=== PATIENT | female | born 1950 | race American Indian/Alaskan Native ===

== ENCOUNTER 2018-12-24 18:27 | Emergency (ER) | payer MEDICAID, MEDICARE ==
--- NOTE | 2018-12-24 18:46 | EDM.PDOC ---
ED HPI GENERAL MEDICAL PROBLEM - General Chief Complaint: Lower Extremity Injury/Pain Stated Complaint: FELL SPRAINED ANKLE Time Seen by Provider: 12/24/18 18:41 - History of Present Illness INITIAL COMMENTS - FREE TEXT/NARRATIVE: HISTORY AND PHYSICAL: History of present illness: Patient is a 68-year-old female sensory concern of right lower extremity injury patient she fell sustaining abrasion to her right leg and ankle injury she denies any head or neck pain or trauma or other concern Review of systems: As per history of present illness and below otherwise all systems reviewed and negative. Past medical history: As per history of present illness and as reviewed below otherwise noncontributory. Surgical history: As per history of present illness and as reviewed below otherwise noncontributory. Social history: No reported history of drug or alcohol abuse. Family history: As per history of present illness and as reviewed below otherwise noncontributory. Physical exam: HEENT: Atraumatic, normocephalic, pupils reactive, negative for conjunctival pallor or scleral icterus, mucous membranes moist, throat clear, neck supple, nontender, trachea midline. Lungs: Clear to auscultation, breath sounds equal bilaterally, chest nontender. Heart: S1S2, regular, negative for clicks, rubs, or JVD. Abdomen: Soft, nondistended, nontender. Negative for masses or hepatosplenomegaly. Negative for costovertebral tenderness. Pelvis: Stable nontender. Genitourinary: Deferred. Rectal: Deferred. Extremities: Patient had a minor abrasion noted to her right tib-fib right ankle is no gross deformity or some mild tenderness in the region of lateral malleolus is no point tenderness in her Achilles tendon is intact. Neurovascular exam is unremarkable Neuro: Awake, alert, oriented. Cranial nerves II through XII unremarkable. Cerebellum unremarkable. Motor and sensory unremarkable throughout. Exam nonfocal. Diagnostics: X-ray right tib-fib/ankle Therapeutics: None Impression: #1 acute right ankle injury #2 abrasion contusion right leg Definitive disposition and diagnosis as appropriate pending reevaluation and review of above. Review of Systems - Review of Systems Review Of Systems: ROS reveals no pertinent complaints other than HPI. ED EXAM, GENERAL - Physical Exam Exam: See Below (See dictation) Departure - Departure Time of Disposition: 18:45 Disposition: Home, Self-Care 01 Condition: Good Clinical Impression: Ankle injury, Leg injury - Discharge Information Additional Instructions: The following information is given to patients seen in the emergency department who are being discharged to home. This information is to outline your options for follow-up care. We provide all patients seen in our emergency department with a follow-up referral. The need for follow-up, as well as the timing and circumstances, are variable depending upon the specifics of your emergency department visit. If you don't have a primary care physician on staff, we will provide you with a referral. We always advise you to contact your personal physician following an emergency department visit to inform them of the circumstance of the visit and for follow-up with them and/or the need for any referrals to a consulting specialist. The emergency department will also refer you to a specialist when appropriate. This referral assures that you have the opportunity for followup care with a specialist. All of these measure are taken in an effort to provide you with optimal care, which includes your followup. Under all circumstances we always encourage you to contact your private physician who remains a resource for coordinating your care. When calling for followup care, please make the office aware that this follow-up is from your recent emergency room visit. If for any reason you are refused follow-up, please contact the [facility] emergency department at and asked to speak to the emergency department charge nurse. Motrin/Tylenol directed follow-up primary medical doctor as needed as discussed return as needed as discussed
--- NOTE | 2018-12-24 19:32 | CR ---
INDICATION: Right ankle injury. TECHNIQUE: Three views of the right ankle. COMPARISON: Today`s right tib fib x-rays. FINDINGS: No soft tissue swelling, fracture or other abnormality. IMPRESSION: Negative right ankle. Dictated by Shola Bryant MD @ Dec 24 2018 7:27PM Signed by Dr. Shola Bryant @ Dec 24 2018 7:32PM
--- NOTE | 2018-12-24 19:32 | CR ---
INDICATION: Right leg injury. Fell. TECHNIQUE: Two views of the right tibia and fibula. COMPARISON: Today`s right ankle x-rays. FINDINGS: No fracture or other abnormality. IMPRESSION: Negative right tibia and fibula. Dictated by Shola Bryant MD @ Dec 24 2018 7:27PM Signed by Dr. Shola Bryant @ Dec 24 2018 7:31PM
[2018-12-24] MEDS ORDERED: Diphtheria,Pertussis(Acell),Tetanus Vaccine 0.5 ML Syringe IM ONE (19:37)
== END 2018-12-24 20:19 | disposition home or self-care (01) ==
LOC: MW.ED 18:27
DX: S80.11XA Contusion of right lower leg, initial encounter (principal); S90.511A Abrasion, right ankle, initial encounter; Z23 Encounter for immunization; W19.XXXA Unspecified fall, initial encounter
CPT/HCPCS: 73590-26-RT; 73590-RT; 73610-26-RT; 73610-RT; 90471; 90715; 99283-25